=== PATIENT | female | born 1970 ===

== ENCOUNTER 2017-03-17 22:32 | Emergency (ER) | payer MEDICARE, MEDICAID ==
[2017-03-17 22:39] VITALS: O2SAT 99
--- NOTE | 2017-03-17 23:21 | C.PDOC ---
History Of Present Illness A 47 yo F c/o dysuria for the past 2 days. Denies abdominal pain, fever, chills , nausea, vomiting, back pain, hematuria, vaginal bleeding, discharge, or any other complaints. Time Seen by Provider: 03/17/17 22:42 Chief Complaint (Nursing): Female Genitourinary History Per: Patient History/Exam Limitations: no limitations Onset/Duration Of Symptoms: Days (2) Current Symptoms Are (Timing): Still Present Severity: Mild Quality Of Discomfort: "Pain" Associated Symptoms: denies: Fever, Chills, Nausea, Vomiting, Back Pain Recent travel outside of the [place]: No Additional History Per: Patient Abnormal Vaginal Bleeding: No Past Medical History Reviewed: Historical Data, Nursing Documentation, Vital Signs Vital Signs: Last Vital Signs Temp 98 F 03/17/17 22:35 Pulse 85 03/17/17 22:35 Resp 18 03/17/17 22:35 BP 145/84 03/17/17 22:35 Pulse Ox 99 03/18/17 00:42 - Medical History PMH: Anxiety, HTN Family History: States: Unknown Family Hx - Social History Hx Alcohol Use: No Hx Substance Use: No - Immunization History Hx Tetanus Toxoid Vaccination: No Hx Influenza Vaccination: No Hx Pneumococcal Vaccination: No Review Of Systems Except As Marked, All Systems Reviewed And Found Negative. Constitutional: Negative for: Fever, Chills Gastrointestinal: Negative for: Nausea, Vomiting, Abdominal Pain Genitourinary: Positive for: Dysuria. Negative for: Hematuria, Vaginal Discharge, Vaginal Bleeding Musculoskeletal: Negative for: Back Pain Physical Exam - Physical Exam Appears: Non-toxic, No Acute Distress Skin: Warm, Dry Head: Atraumatic, Normacephalic Eye(s): bilateral: Normal Inspection, PERRL Gastrointestinal/Abdominal: Soft, No Tenderness Back: Normal Inspection, No CVA Tenderness Pelvic: Other (pt refused) Neurological/Psych: Oriented x3, Normal Speech Gait: Steady ED Course And Treatment O2 Sat by Pulse Oximetry: 99 (RA) Pulse Ox Interpretation: Normal Progress Note: Impression: A 47 yo F c/o dysuria for the past 2 days. Plans: UA , Reassess. Pt is in no acute distress at this time. UA normal, Ucx sent- Pt will be treated with pyridium and advised follow up in clinic for culture result. Pt was instructed of treatment plan and does agree with plan. Pt is to follow up with PMD for further evaluation, understands return precautions. Reevaluation Time: 00:43 Reassessment Condition: Improved Disposition - Disposition Disposition: HOME/ ROUTINE Disposition Time: 00:38 Condition: STABLE Additional Instructions: Please follow up with PMD Take meds as directed Return to ER if worse Instructions: Dysuria (ED) - Clinical Impression Clinical Impression: Dysuria - Scribe Statement The provider has reviewed the documentation as recorded by the Scribnoris maza All medical record entries made by the Hilarioibnoris were at my direction and personally dictated by me. I have reviewed the chart and agree that the record accurately reflects my personal performance of the history, physical exam, medical decision making, and the department course for this patient. I have also personally directed, reviewed, and agree with the discharge instructions and disposition.
[2017-03-17 23:40] LABS: RBC URINE 3 /hpf (0-3); URINE BACTERIA RARE (<OCC); URINE BILIRUBIN NEGATIVE (NEGATIVE); URINE BLOOD NEGATIVE (NEGATIVE); URINE COLOR Yellow (YELLOW); URINE GLUCOSE (UA) 1+ mg/dL (Normal); URINE KETONE TRACE mg/dL (NEGATIVE); URINE LEUKOCYTE ESTERASE NEG Leu/uL (Negative); URINE PROTEIN NEGATIVE (NEGATIVE); URINE UROBILINOGEN NORMAL mg/dL (0.2-1.0); WBC URINE 2 /hpf (0-5)
[2017-03-18 01:01] VITALS: BP 118/78; PULSE 65; RESP 16; TEMP 97.8
== END 2017-03-18 01:01 | disposition home or self-care (01) ==
LOC: SUPCPDRO 22:32 → C.ER 22:32
DX: R30.0 Dysuria (principal)